=== PATIENT | female | born 1950 | race Caucasian/White ===

== ENCOUNTER 2017-08-31 09:09 | Outpatient (CLI) | payer MEDICARE ==
[~2017-08-31 09:09] MED LIST: CARV3.12 PO; LEVO75TA PO; LOSA50TA3 PO
== END 2017-08-31 23:59 | disposition home or self-care (01) ==
LOC: RT 09:09
PROVIDERS: ATTEND Internal Medicine Critical Care Medicine
DX: J44.9 Chronic obstructive pulmonary disease, unspecified (principal)
CPT/HCPCS: 94618

== ENCOUNTER 2017-11-29 00:21 | Outpatient (CLI) | payer MEDICARE ==
[~2017-11-29 00:21] MED LIST changes: +ACET-812 PO; -CARV3.12 PO
== END 2017-11-29 23:59 | disposition home or self-care (01) ==
LOC: DIABETIC 00:21
PROVIDERS: ATTEND Family Medicine
DX: Z71.3 Dietary counseling and surveillance (principal); E06.3 Autoimmune thyroiditis; J84.10 Pulmonary fibrosis, unspecified; I10 Essential (primary) hypertension
CPT/HCPCS: 97802

== ENCOUNTER 2017-12-16 13:26 | Outpatient (CLI) | payer MEDICARE | END 2017-12-16 23:59 | disposition home or self-care (01) | LOC: VAS 13:26 | PROVIDERS: ATTEND Podiatrist Foot & Ankle Surgery | DX: S82.855A Nondisplaced trimalleolar fracture of left lower leg, initial encounter for closed fracture (principal); I10 Essential (primary) hypertension; X58.XXXA Exposure to other specified factors, initial encounter; Y93.89 Activity, other specified; Y92.89 Other specified places as the place of occurrence of the external cause; Y99.8 Other external cause status | CPT/HCPCS: 93970 ==

== ENCOUNTER 2020-07-07 06:06 | Emergency (ER) | payer MEDICARE ==
[~2020-07-07] VITALS: Ht 167.6 cm; Wt 78.6 kg
[2020-07-07 06:46] LABS: BASOPHILS # (AUTO) 0.1 X10'3 (0-0.2); BASOPHILS % (AUTO) 0.5 % (0-1); EOSINOPHILS # (AUTO) 0.2 X10'3 (0-0.9); EOSINOPHILS % (AUTO) 1.4 % (0-6); HEMATOCRIT 38.4 % (35.0-45.0); HEMOGLOBIN 13.2 g/dl (12.0-16.0); LYMPHOCYTES % (AUTO) 17.6 % (21-51); MEAN CORPUSCULAR HEMOGLOBIN 31.2 PG (27.0-31.0); MEAN CORPUSCULAR HGB CONC 34.5 g/dL (33.0-36.5); MEAN CORPUSCULAR VOLUME 90.7 FL (78-98); MEAN PLATELET VOLUME 6.1 FL (7.4-10.4); MONOCYTES # (AUTO) 0.8 X10'3 (0-0.9); MONOCYTES % (AUTO) 7.1 % (2-12); NEUTROPHILS # (AUTO) 8.2 X10'3 (1.8-7.7); NEUTROPHILS % (AUTO) 73.4 % (42-75); PLATELET COUNT 248 X10'3 (140-440); RED BLOOD COUNT 4.23 X10'6 (4.20-5.60); RED CELL DISTRIBUTION WIDTH 13.2 % (11.5-14.5); WHITE BLOOD COUNT 11.2 X10'3 (4.5-11.0)
[2020-07-07 07:01] LABS: ALANINE AMINOTRANSFERASE 16 U/L (12-78); ALKALINE PHOSPHATASE 75 IU/L (46-116); ANION GAP 10 (8-16); ASPARTATE AMINO TRANSFERASE 18 U/L (10-37); BILIRUBIN,TOTAL 0.4 MG/DL (0.1-1.0); BLOOD UREA NITROGEN 23 MG/DL (7-18); BUN/CREATININE RATIO 22.1 (6.6-38.0); CALCIUM 9.4 MG/DL (8.5-10.1); CHLORIDE 102 MMOL/L (99-107); CREATININE 1.04 MG/DL (0.40-0.90); GLUCOSE 92 MG/DL (70-104); POTASSIUM 3.9 MMOL/L (3.5-5.1); SODIUM 139 MMOL/L (135-145); TOTAL CARBON DIOXIDE 27.1 MMOL/L (24-32); TOTAL PROTEIN 7.9 G/DL (6.4-8.2); eGFR 52 ML/MIN
[2020-07-07 07:22] LABS: D-DIMER 0.58 MG/L FEU (0-0.50)
[2020-07-07] MEDS ORDERED: normal saline 1000ML IV soln IVB ONE (07:50)
--- NOTE | 2020-07-07 09:02 | NUR ---
Pt's fluids completed. Dr. Kaye aware.
[2020-07-07] MEDS ORDERED: iohexol 350MG/ML 100ml bottle IV ONE (09:05)
[2020-07-07] MEDS ORDERED: ketorolac tromethamine 15mg/ml inj. IV ONE (09:25)
[2020-07-07] MEDS ORDERED: predniSONE 20 mg tablet PO ONE (12:55)
[2020-07-07] MEDS ORDERED: ACET-3068 PO ×2 (12:58→12:59)
[2020-07-07] MEDS ORDERED: PRED20TA PO (12:58)
[2020-07-07 13:37] VITALS: BP 125/58
== END 2020-07-07 13:34 | disposition home or self-care (01) ==
LOC: ER 06:07
DX: J12.9 Viral pneumonia, unspecified (principal); R07.89 Other chest pain; R06.02 Shortness of breath; Z20.822 Contact with and (suspected) exposure to COVID-19; I10 Essential (primary) hypertension; Z95.0 Presence of cardiac pacemaker; Z88.2 Allergy status to sulfonamides; Z79.899 Other long term (current) drug therapy
CPT/HCPCS: 36415; 71045; 71275; 80053; 83880; 84484; 85025; 85379; 87635; 93005; 96374; 99285; C9803; J1885; J7030; J7512; Q9967